=== PATIENT | male | born 1995 | race Caucasian/White ===

== ENCOUNTER 2021-04-22 14:23 | Emergency (ER) | payer OTHER, SELFPAY ==
[2021-04-22 14:32] VITALS: BP 135/94; PULSE 121; RESP 20; TEMP 36.7; O2SAT 99
[2021-04-22 14:49] LABS: Basophils Percent Auto 0.5 % (0.2-1.2); Eosinophils Absolute Auto 0.1 K/mm3 (0-0.3); Eosinophils Percent Auto 0.9 % (0-4.4); Hematocrit 46.2 % (42.0-52.0); Hemoglobin 15.4 g/dL (14.0-18.0); Immature Granulocyte Absolute 0.01 K/mm3 (0.00-0.031); Immature Granulocyte Percent A 0.1 % (0-0.5); Lymphocytes Absolute Auto 2.09 K/mm3 (0.9-3.2); Lymphocytes Percent Auto 27.5 % (18.3-44.2); Mean Corpuscular HGB Conc 33.3 g/dl (32-36); Mean Corpuscular Hemoglobin 29.8 pg (26-34); Mean Corpuscular Volume 89.5 fl (80-100); Mean Platelet Volume 10.8 fl (7.4-10.4); Monocytes Absolute Auto 0.6 K/mm3 (0.1-0.6); Neutrophils Absolute Auto 4.8 K/mm3 (1.3-6.7); Platelet Count Result 294 k/mm3 (150-375); Red Blood Count 5.16 M/mm3 (4.6-6.20); Red Cell Distribution Width 12.1 % (11.5-14.5); White Blood Count 7.6 K/mm3 (4.5-10.0)
[2021-04-22 14:58] LABS: Alanine Aminotransferase 100 U/L (4-50); Albumin Level 5.1 g/dL (3.5-5.1); Alkaline Phosphatase 81 U/L (38-126); Anion Gap 12 mmol/L (8-16); Aspartate Amino Transferase 50 U/L (17-59); Bilirubin,Total 0.5 mg/dL (0.2-1.3); Blood Urea Nitrogen 13 mg/dL (9-20); Calcium 10.2 mg/dL (8.4-10.2); Carbon Dioxide 26 mmol/L (22-30); Chloride 106 mmol/L (98-107); Estimated CRCL calculation 89 ml/min; Estimated Glomerular Filt Rate > 60; Glucose 92 mg/dL (75-110); Lipase 91 U/L (23-300); Sodium 144 mmol/L (137-145)
--- NOTE | 2021-04-22 15:47 | ED.GENADULT ---
HPI - General Adult General Chief complaint: Abdominal Pain Stated complaint: emesis x 1 Time Seen by Provider: 04/22/21 15:44 Source: RN notes reviewed History of Present Illness HPI narrative: Patient presents to emergency department from home for nausea vomiting. Patient states that yesterday morning he had an episode of abdominal pain the right lower quadrant followed by one episode of nausea and vomiting. States at that time he still had some intermittent abdominal cramping and nausea throughout the day states that this a.m. he awoke with some mild nausea that has since resolved he states he has had no abdominal pain and nausea for the past 6 hours he was told by his work he needed to come to the be evaluated prior to returning to work he denies any fever chills chest pain shortness of breath or any other symptoms Review of Systems Review of Systems: Narrative: Gen.: Denies fevers or chills ENT: Denies congestion Respiratory: Denies shortness of breath or cough CV: Denies chest pain or palpitations GI: See HPI denies burning, urgency, frequency or hematuria Musculoskeletal: Denies back pain or muscle pain Neuro: Denies numbness, tingling, weakness or focal weakness Skin: Denies rash Except as documented, all other systems reviewed and negative PMFSH Past Medical History Medical History (Updated 04/22/21 @ 16:09 by Alexandru Lynch DO) Patient denies significant medical history Social History Social History (Updated 04/22/21 @ 15:49 by Alexandru Lynch DO) Smoking status: Never smoker Exam Narrative: Exam Narrative: APPEARANCE: No acute distress, nontoxic, resting in bed EYES: EOMI HEENT: Normocephalic, atraumatic, OMM RESPIRATORY: No respiratory distress Clear to auscultation bilaterally with no rhonchi wheezing or rales. CARDIOVASCULAR: Regular rate and rhythm without murmurs rubs or gallops. ABDOMINAL: Soft, nontender, nondistended, no rebound or guarding MUSCULOSKELETAl: Moves all extremities. No clubbing, cyanosis or edema. NEURO: Awake and alert. Following commands, speech normal, no focal deficits SKIN:: Warm, dry. No rashes lesions or abrasions PSYCHIATRIC: Normal affect/mood, Course Course Emergency Course: Patient ate and drink in the ED with no difficulty he denies any abdominal pain denies any nausea or vomiting states he is ready for discharge Discussed with patient results of workup and diagnosis. Discussed need for follow-up with primary care, proper use of medication, and reasons to return to the emergency department. Patient understands and agrees to current treatment plan Vital Signs Vital signs: Vital Signs Temperature 98.0 F 04/22/21 14:32 Pulse Rate 121 H 04/22/21 14:32 Respiratory Rate 20 04/22/21 14:32 Blood Pressure 135/94 H 04/22/21 14:32 Pulse Oximetry 99 04/22/21 14:32 Temperature 98.0 F 04/22/21 14:32 Pulse Rate 82 04/22/21 15:49 Respiratory Rate 18 04/22/21 15:49 Blood Pressure 125/107 H 04/22/21 15:49 Pulse Oximetry 96 04/22/21 15:49 Medical Decision Making Vital Signs Vital Signs: Vital Signs Temperature 98.0 F 04/22/21 14:32 Pulse Rate 121 H 04/22/21 14:32 Respiratory Rate 20 04/22/21 14:32 Blood Pressure 135/94 H 04/22/21 14:32 Pulse Oximetry 99 04/22/21 14:32 Temperature 98.0 F 04/22/21 14:32 Pulse Rate 82 04/22/21 15:49 Respiratory Rate 18 04/22/21 15:49 Blood Pressure 125/107 H 04/22/21 15:49 Pulse Oximetry 96 04/22/21 15:49 Lab Data Result diagrams: 04/22/21 14:38 04/22/21 14:38 Labs: Lab Results 04/22/21 04/22/21 Range/Units 14:38 14:38 WBC 7.6 (4.5-10.0) K/mm3 RBC 5.16 (4.6-6.20) M/mm3 Hgb 15.4 (14.0-18.0) g/dL Hct 46.2 (42.0-52.0) % MCV 89.5 (80-100) fl MCH 29.8 (26-34) pg MCHC 33.3 (32-36) g/dl RDW 12.1 (11.5-14.5) % Plt Count 294 (150-375) k/mm3 MPV 10.8 H (7.4-10.4) fl Immature Gran % (Auto) 0.1 (0-0
[2021-04-22 15:49] VITALS: BP 125/107; PULSE 82; RESP 18; O2SAT 96
--- NOTE | 2021-04-22 15:52 | PC.NURSE ---
Patient unable to give urine sample at this time. patient given crackers and a drink per EDP request for PO challenge.
[2021-04-22 16:17] VITALS: BP 124/86; PULSE 92; RESP 14; O2SAT 99
== END 2021-04-22 16:20 | disposition home or self-care (01) ==
PROVIDERS: Emergency Medicine; Emergency Provider Emergency Medicine
DX: R11.2 Nausea with vomiting, unspecified (principal); R10.31 Right lower quadrant pain
CPT/HCPCS: 36415; 80053; 83690; 85025; 99283

== ENCOUNTER 2022-05-13 14:25 | Emergency (ER) | payer OTHER, SELFPAY ==
[2022-05-13 14:38] VITALS: BP 133/90; PULSE 110; RESP 12; TEMP 37.2; O2SAT 98
--- NOTE | 2022-05-13 14:53 | ED.GENADULT ---
HPI - General Adult General Chief complaint: Upper Respiratory Infection Stated complaint: Cough Time Seen by Provider: 05/13/22 14:55 Source: patient, RN notes reviewed and old records reviewed Mode of arrival: ambulatory Limitations: no limitations History of Present Illness HPI narrative: 27 year old male who presents to [facility] care with stated complaints of testing positive on home test this morning at 0500 but states no fevers, nasal congestion or drainage or any sore throat, little dry cough only. He states that both of his room mates have COVID at this time and that is why he tested. He is in the [employer] and they told him to come here and be evaluated. Patient has had COVID vaccinations and had COVID in April of 2021. He just returned from deployment and has [place] in [place] for about 2 weeks. MD complaint: positive home COVID test Related Data Home Medications Medication Instructions Recorded Confirmed No Home Medications 05/13/22 05/13/22 Allergies Allergy/AdvReac Type Severity Reaction Status Date / Time No Known Allergies Allergy Verified 05/13/22 14:30 Review of Systems Review of Systems: CONSTITUTIONAL: Denies fever, chills, or sweats. EYES: Denies visual changes, redness, or discharge. ENT: Denies rhinorrhea, congestion, sore throat, or otalgia. CARDIOVASCULAR: Denies chest pain, palpitations, or edema. RESPIRATORY: Occasional dry cough denies dyspnea. GASTROINTESTINAL: Denies abdominal pain, nausea, vomiting, or diarrhea. GENITOURINARY: Denies dysuria or hematuria. SKIN: Denies rash or itching. MUSCULOSKELETAL: Denies back pain, joint pain, or myalgia. NEUROLOGIC: Denies headache, numbness, or weakness. PSYCHIATRIC: Denies anxiety or depression. All systems reviewed & are unremarkable except as noted in HPI and below PMFSH Past Medical History Medical History (Updated 05/15/22 @ 02:29 by Olga Mendoza NP) COVID-17 May 2021 Patient denies significant medical history Social History Social History (Updated 04/22/21 @ 15:49 by Alexandru Lynch DO) Smoking status: Never smoker Comments At time of signature, agree with nursing past medical, surgical, social and family history. There is no relevant family history pertinent to the presenting complaint Exam Narrative: GENERAL: Well-appearing, well-nourished, and in no acute distress. HEAD: Normocephalic, atraumatic. EYES: PERRLA and EOMI. ENT: Nares clear, no rhinorrhea or epistaxis. Mucous membranes moist.TM's normal with good light reflex, throat pink with no tonsil swelling NECK: Supple.no lymphadenopathy CHEST: Clear to auscultation. No respiratory distress. SAO2 98% on room air. HEART: Regular rate and rhythm. No murmur heard. Normal peripheral pulses. ABDOMEN: Soft, nontender, nondistended, normal active bowel sounds. EXTREMITIES: Normal range of motion. No edema. SKIN: Warm, dry, no rash. NEURO: No focal deficits. Alert and oriented x3. Course Course Level of Care: Express Care Visit Vital Signs Vital signs: Vital Signs Temperature 37.2 C 05/13/22 14:38 Pulse Rate 110 H 05/13/22 14:38 Respiratory Rate 12 05/13/22 14:38 Blood Pressure 133/90 05/13/22 14:38 Pulse Oximetry 98 05/13/22 14:38 Oxygen Delivery Room Air 05/13/22 14:38 Temperature 37.2 C 05/13/22 14:38 Pulse Rate 110 H 05/13/22 14:38 Respiratory Rate 12 05/13/22 14:38 Blood Pressure 133/90 05/13/22 14:38 Pulse Oximetry 98 05/13/22 14:38 Oxygen Delivery Room Air 05/13/22 14:38 Medical Decision Making Differential Diagnosis Differential Diagnosis: exposure to COVID, positive home covid test, uri, cough Medical Records Medical records reviewed: Yes I reviewed the external patient's medical records. Vital Signs Vital Signs: Vital Signs Temperature 37.2 C 05/13/22 14:38 Pulse Rate 110 H 05/13/22 14:38 Respiratory Rate 12 05/13/22 14:38 Blood Pressure 133/90 05/13/22 14:38 Pulse Oximetr
[2022-05-13 19:27] LABS: SARS-CoV-2 RNA PCR Negative
== END 2022-05-13 15:36 | disposition home or self-care (01) ==
PROVIDERS: Emergency Provider Registered Nurse
DX: Z20.822 Contact with and (suspected) exposure to COVID-19 (principal); Z86.16 Personal history of COVID-19
CPT/HCPCS: 87426; 99213; C9803; G0463; U0003; U0005